=== PATIENT | male | born 1975 | race Caucasian/White ===

== ENCOUNTER → 2016-04-02 | Outpatient (CLI) | payer OTHER ==
[~2016-04-02] MED LIST: METH5TAB4 PO
--- NOTE | 2016-04-02 12:35 | DIAGNOSTIC IMAGING REPORT ---
MRI CERVICAL WITHOUT CONTRAST CLINICAL HISTORY: Neck pain and right arm radiculopathy TECHNIQUE: Sagittal and axial T1, T2 and STIR images were obtained. COMPARISON STUDY: No previous studies for comparison. The vertebral body marrow is of lower signal in disc on T1-weighted images. While this can represent a normal variation, one cannot exclude a proliferative marrow or marrow replacing process. Clinical correlation this regard is advocated. C2-3: There is no evidence of disc bulge or focal herniation. There is no spinal or foraminal stenosis. C3-4: There is no evidence of disc bulge or focal herniation. There is no spinal or foraminal stenosis. C4-5: There is a small broad-based central disc protrusion. This results in minimal narrowing of the spinal canal. There is no significant foraminal narrowing C5-6 :There are no disc bulges or focal herniations. There is no spinal or foraminal stenosis. C6-7: There is no evidence of disc bulge or focal herniation. There is no evidence of spinal or foraminal stenosis. C7-T1: There is no evidence of disc bulge or focal herniation. There is no evidence of spinal or foraminal stenosis. No intrinsic cord lesions are visualized. There are polyp/retention cysts within the maxillary sinuses. IMPRESSION: 1. Small broad-based central disc protrusion at the C4-5 level with minor secondary spinal canal narrowing 2. No intrinsic cord lesions identified 3. Slight diminished signal of the marrow within the cervical spine. While this can be seen as a normal variation, one cannot exclude a marrow proliferative process or infiltrative marrow process. Clinical correlation in this regard is advocated Electronically signed by: Ronan Covarrubias M.D. 04/02/2016 12:33 PM Dictated Date/Time: 04/02/2016 12:27 PM
== END | disposition home or self-care (01) ==
LOC: C.MRIBC 10:56
PROVIDERS: ATTEND Orthopaedic Surgery
DX: M50.20 Other cervical disc displacement, unspecified cervical region (principal); M79.601 Pain in right arm; M54.10 Radiculopathy, site unspecified